=== PATIENT | male | born 1955 | race Caucasian/White ===

== ENCOUNTER → 2018-04-21 | Outpatient (REF) | payer OTHER, MEDICAID ==
[2018-04-21 13:35] LABS: ALBUMIN 3.9 GM/DL (3.2-5.2); ALBUMIN/GLOBULIN RATIO 1.34 (1.00-1.93); ALKALINE PHOSPHATASE 71 U/L (45-117); ALT/SGPT 48 U/L (12-78); ANION GAP 5 MEQ/L (8-16); AST/SGOT 26 U/L (7-37); BILIRUBIN,TOTAL 0.3 MG/DL (0.2-1.0); BLOOD UREA NITROGEN 24 MG/DL (7-18); CALCIUM LEVEL 8.9 MG/DL (8.8-10.2); CARBON DIOXIDE LEVEL 26 MEQ/L (21-32); CHLORIDE LEVEL 113 MEQ/L (98-107); CHOLESTEROL LEVEL 176 MG/DL (<200); CHOLESTEROL RISK RATIO 4.756 (<5); CREATININE FOR GFR 1.04 MG/DL (0.70-1.30); GLOMERULAR FILTRATION RATE > 60.0 (>49); GLUCOSE, FASTING 95 MG/DL (70-100); HDL CHOLESTEROL 37 MG/DL (>40); LDL CHOLESTEROL 128 MG/DL (<100); NON-HDL-C 139 MG/DL; POTASSIUM SERUM 4.9 MEQ/L (3.5-5.1); SODIUM LEVEL 144 MEQ/L (136-145); TOTAL PROTEIN 6.8 GM/DL (6.4-8.2); TRIGLYCERIDES LEVEL 56 MG/DL (<150)
== END ==
LOC: M LAB REF 12:26
DX: Z00.01 Encounter for general adult medical examination with abnormal findings (principal)
CPT/HCPCS: 84443

== ENCOUNTER → 2019-06-01 | Outpatient (REF) | payer OTHER, MEDICAID ==
[2019-06-01 12:35] LABS: APPEARANCE, URINE CLEAR (CLEAR); BACTERIA, URINE AUTO NEGATIVE (NEGATIVE); BILIRUBIN, URINE AUTO NEGATIVE (NEGATIVE); BLOOD, URINE BLOOD NEGATIVE (NEGATIVE); COLOR, URINE YELLOW (YELLOW); GLUCOSE, URINE (UA) AUTO NEGATIVE (NEGATIVE); KETONE, URINE AUTO NEGATIVE (NEGATIVE); LEUKOCYTE ESTERASE, URINE AUTO NEGATIVE (NEGATIVE); NITRITE, URINE AUTO NEGATIVE (NEGATIVE); PROTEIN, URINE AUTO NEGATIVE (NEGATIVE); RBC, URINE AUTO 1 /HPF (0-3); SPECIFIC GRAVITY URINE AUTO 1.019 (1.002-1.035); SQUAMOUS EPITHELIAL CELL UR AU 0 /HPF (0-6); UROBILINOGEN, URINE AUTO 0.2 mg/dL (0.0-2.0); WBC, URINE AUTO 1 /HPF (0-3)
[2019-06-01 12:40] LABS: BASO % 0.8 % (0.0-1.0); EOS # 0.1 10^3/uL (0.0-0.5); EOS % 2.6 % (0.0-3.0); HEMATOCRIT 56.2 % (42.0-52.0); HEMOGLOBIN 18.7 g/dl (13.5-17.5); LYMPH # 1.5 10^3/uL (1.5-5.0); LYMPH % 29.9 % (24.0-44.0); MEAN CORPUSCULAR HEMOGLOBIN 30.4 pg (27.0-33.0); MEAN CORPUSCULAR HGB CONC 33.3 g/dl (32.0-36.5); MEAN CORPUSCULAR VOLUME 91.4 fl (80.0-96.0); MONO # 0.7 10^3/uL (0.0-0.8); NEUTROPHILS # 2.6 10^3/uL (1.5-8.5); NEUTROPHILS % 52.5 % (36.0-66.0); PLATELET COUNT, AUTOMATED 272 10^3/uL (150-450); RED BLOOD COUNT 6.15 10^6/uL (4.30-6.10)
[2019-06-01 12:55] LABS: HEMOGLOBIN A1c 5.7 %
[2019-06-01 13:21] LABS: ALBUMIN 3.7 GM/DL (3.2-5.2); ALT/SGPT 43 U/L (12-78); BILIRUBIN,TOTAL 0.6 MG/DL (0.2-1.0); BLOOD UREA NITROGEN 21 MG/DL (7-18); CARBON DIOXIDE LEVEL 27 MEQ/L (21-32); CHLORIDE LEVEL 107 MEQ/L (98-107); CHOLESTEROL LEVEL 203 MG/DL (<200); GLOMERULAR FILTRATION RATE > 60.0 (>49); GLUCOSE, FASTING 86 MG/DL (70-100); HDL CHOLESTEROL 50 MG/DL (>40); LDL CHOLESTEROL 141 MG/DL (<100); NON-HDL-C 153 MG/DL; POTASSIUM SERUM 4.7 MEQ/L (3.5-5.1); SODIUM LEVEL 140 MEQ/L (136-145); TOTAL PROTEIN 7.3 GM/DL (6.4-8.2); TRIGLYCERIDES LEVEL 61 MG/DL (<150)
[2019-06-01 13:47] LABS: TOTAL 25(OH) VITAMIN D 23.4 NG/ML (30.0-100.0)
== END ==
LOC: M LAB REF 11:48
PROVIDERS: ATTEND Nurse Practitioner Family
DX: Z00.01 Encounter for general adult medical examination with abnormal findings (principal); R39.198 Other difficulties with micturition

== ENCOUNTER → 2019-06-24 | Outpatient (CLI) | payer OTHER ==
[~2019-06-24] MED LIST: E-Z-GAS II EFFERVESCENT PACKET (SODIUM BICARB./CITRIC ACID/SIMETHICONE) As Ordered ONE; E-Z-HD 98% w/w 340GM SUSP BTL As Ordered ONE; E-Z-PAQUE 96% w/w SUSP 176GM BTL As Ordered ONE
--- NOTE | 2019-06-27 09:04 | REP ---
Examination Requested: Esophagram Barium Swallow Reason For Exam/Comment: Dysphasia Esophagram: The procedure was performed [facility] [place], under the direct supervision of Dr. Castillo. The images were reviewed with Dr. Castillo. A single PA chest x-ray is submitted as a station helper film. The superior mediastinal structures are midline. The heart size is within normal limits. The lungs are clear. Liquid barium and gas producing granules were given in the erect position as well as liquid barium in the prone oblique position, in order to perform a double contrast esophagram examination. Oral and pharyngeal stages of the examination demonstrate laryngeal penetration. Esophageal transport is efficient and there is no esophagitis, stricture, or mucosal ring noted. There is there is no hiatal hernia noted. Gastroesophageal reflux was visualized to the level of thoracic inlet. Impression: 1. Gastroesophageal reflux to the level of the thoracic inlet. 0.4 minutes of fluoroscopy time was utilized for this procedure. Some fluoroscopic images are performed with last image hold technology. These images require no additional radiation. Reviewed by KIA Vick 06/24/2019 05:43 P Electronically Signed by Hamilton Castillo MD 06/27/2019 08:55 A
== END ==
LOC: M RAD 09:08
PROVIDERS: ATTEND Physician Assistant Medical
DX: R13.10 Dysphagia, unspecified (principal)

== ENCOUNTER → 2019-07-27 | Outpatient (REF) | payer OTHER ==
[2019-07-27 13:25] LABS: APPEARANCE, URINE CLEAR (CLEAR); BACTERIA, URINE AUTO NEGATIVE (NEGATIVE); BILIRUBIN, URINE AUTO NEGATIVE (NEGATIVE); BLOOD, URINE BLOOD NEGATIVE (NEGATIVE); COLOR, URINE YELLOW (YELLOW); GLUCOSE, URINE (UA) AUTO NEGATIVE (NEGATIVE); KETONE, URINE AUTO NEGATIVE (NEGATIVE); LEUKOCYTE ESTERASE, URINE AUTO NEGATIVE (NEGATIVE); NITRITE, URINE AUTO NEGATIVE (NEGATIVE); PROTEIN, URINE AUTO NEGATIVE (NEGATIVE); RBC, URINE AUTO 1 /HPF (0-3); SPECIFIC GRAVITY URINE AUTO 1.018 (1.002-1.035); SQUAMOUS EPITHELIAL CELL UR AU 0 /HPF (0-6); UROBILINOGEN, URINE AUTO 0.2 mg/dL (0.0-2.0); WBC, URINE AUTO 0 /HPF (0-3)
== END ==
LOC: M SMT 12:53
PROVIDERS: ATTEND Nurse Practitioner Women's Health
DX: R39.15 Urgency of urination (principal)

== ENCOUNTER 2019-09-06 09:20 | Day surgery (SDC) | payer OTHER ==
[~2019-09-06] VITALS: Ht 172.7 cm; Wt 91.4 kg
[~2019-09-06 09:20] MED LIST changes: +BIOT10009 PO; +D-101000 PO; -E-Z-GAS II EFFERVESCENT PACKET (SODIUM BICARB./CITRIC ACID/SIMETHICONE) As Ordered ONE; -E-Z-HD 98% w/w 340GM SUSP BTL As Ordered ONE; -E-Z-PAQUE 96% w/w SUSP 176GM BTL As Ordered ONE; +FOLI400T PO; +LIDOCAINE 2% INJ 100 MG/5 ML SDV (FOR ANES.) As Ordered ONE; +MAGN1CAP PO; +NS 1,000 ML IV SCH; +propofoL 200 MG/20 ML VIAL As Ordered ONE
--- NOTE | 2019-09-06 10:46 | ROOR ---
Patient Name: Richie Cassidy Procedure Date: 09/06/2019 10:29 AM Date of : 1955 Age: 64 Room: [facility] Gender: Male Note Status: Finalized Procedure: Upper GI endoscopy Indications: Dysphagia Providers: Kyrie BRAXTON MD Referring MD: Kyara Dan Requestsal Provider: Medicines: Monitored Anesthesia Care Complications: No immediate complications. Procedure: Pre-Anesthesia Assessment: - The heart rate, respiratory rate, oxygen saturations, blood pressure, adequacy of pulmonary ventilation, and response to care were monitored throughout the procedure. The Endoscope was introduced through the mouth, and advanced to the second part of duodenum. The upper GI endoscopy was accomplished without difficulty. The patient tolerated the procedure well. Findings: The Z-line was variable and was found 39 cm from the incisors. This was biopsied with a cold forceps for histology. No endoscopic abnormality was evident in the esophagus to explain the patient's complaint of dysphagia. This was biopsied with a cold forceps for evaluation of eosinophilic esophagitis. The entire examined stomach was normal. The examined duodenum was normal. Impression: - Normal esophagus with Z-line variable, 39 cm from the incisors. Biopsied. - No endoscopic esophageal abnormality to explain patient's dysphagia. Biopsied. - Normal stomach. - Normal examined duodenum. Recommendation: - Follow an antireflux regimen. - Observe patient's clinical course. - Telephone endoscopist for pathology results in 2 weeks. Kyrie Braxton MD Kyrie BRAXTON MD 09/06/2019 10:45:39 AM Electronically signed by Kyrie BRAXTON MD Number of Addenda: 0 Note Initiated On: 09/06/2019 10:29 AM Estimated Blood Loss: Estimated blood loss: none.
--- NOTE | 2019-09-06 11:01 | ROOR ---
Patient Name: Richie Cassidy Procedure Date: 09/06/2019 10:30 AM Date of : 1955 Age: 64 Room: [facility] Gender: Male Note Status: Finalized Procedure: Colonoscopy Indications: Screening for colorectal malignant neoplasm Providers: Kyrie BRAXTON MD Referring MD: Kyara Dan Requestsal Provider: Medicines: Monitored Anesthesia Care Complications: No immediate complications. Procedure: Pre-Anesthesia Assessment: - The heart rate, respiratory rate, oxygen saturations, blood pressure, adequacy of pulmonary ventilation, and response to care were monitored throughout the procedure. The Colonoscope was introduced through the anus and advanced to the terminal ileum, with identification of the appendiceal orifice and IC valve. The colonoscopy was somewhat difficult due to inadequate bowel prep. Successful completion of the procedure was aided by lavage. The patient tolerated the procedure well. The quality of the bowel preparation was adequate. Findings: The perianal and digital rectal examinations were normal. Internal hemorrhoids were found during retroflexion. The hemorrhoids were medium-sized. The entire examined colon appeared normal on direct and retroflexion views. Impression: - Internal hemorrhoids. - The entire examined colon is normal on direct and retroflexion views. - No specimens collected. Recommendation: - Repeat colonoscopy in 5 years because the bowel preparation was suboptimal. Kyrie Braxton MD Kyrie BRAXTON MD 09/06/2019 11:01:12 AM Electronically signed by Kyrie BRAXTON MD Number of Addenda: 0 Note Initiated On: 09/06/2019 10:30 AM Estimated Blood Loss: Estimated blood loss: none.
[2019-09-06 11:37] VITALS: BP 107/62
== END 2019-09-06 11:40 | disposition home or self-care (01) ==
LOC: M OPP 09:20
PROVIDERS: ATTEND Internal Medicine Gastroenterology
DX: Z12.11 Encounter for screening for malignant neoplasm of colon (principal); K64.8 Other hemorrhoids; K22.8 Other specified diseases of esophagus; R13.10 Dysphagia, unspecified; Z88.2 Allergy status to sulfonamides; Z88.7 Allergy status to serum and vaccine; Z88.8 Allergy status to other drugs, medicaments and biological substances; Z91.018 Allergy to other foods; Z91.013 Allergy to seafood

== ENCOUNTER → 2019-11-29 | Outpatient (REF) | payer MEDICAID ==
[~2019-11-29] MED LIST changes: -LIDOCAINE 2% INJ 100 MG/5 ML SDV (FOR ANES.) As Ordered ONE; -NS 1,000 ML IV SCH; -propofoL 200 MG/20 ML VIAL As Ordered ONE
[2019-11-29 12:57] LABS: CHOLESTEROL RISK RATIO 3.92 (<5)
[2019-11-29 13:19] LABS: TOTAL 25(OH) VITAMIN D 27.6 NG/ML (30.0-100.0)
[2019-11-29 15:15] LABS: HEMOGLOBIN A1c 5.8 %
== END ==
LOC: M LAB REF 11:46
PROVIDERS: ATTEND Nurse Practitioner Family
DX: N39.43 Post-void dribbling (principal); E78.00 Pure hypercholesterolemia, unspecified; R73.03 Prediabetes; R39.198 Other difficulties with micturition

== ENCOUNTER → 2020-04-20 | Outpatient (REF) | payer OTHER ==
[2020-04-20 14:16] LABS: APPEARANCE, URINE CLEAR (CLEAR); BACTERIA, URINE AUTO NEGATIVE (NEGATIVE); BILIRUBIN, URINE AUTO NEGATIVE (NEGATIVE); BLOOD, URINE BLOOD 1+ (NEGATIVE); COLOR, URINE STRAW (YELLOW); GLUCOSE, URINE (UA) AUTO NEGATIVE (NEGATIVE); KETONE, URINE AUTO NEGATIVE (NEGATIVE); LEUKOCYTE ESTERASE, URINE AUTO NEGATIVE (NEGATIVE); NITRITE, URINE AUTO NEGATIVE (NEGATIVE); PROTEIN, URINE AUTO NEGATIVE (NEGATIVE); RBC, URINE AUTO 0 /HPF (0-3); SPECIFIC GRAVITY URINE AUTO 1.015 (1.002-1.035); SQUAMOUS EPITHELIAL CELL UR AU 0 /HPF (0-6); UROBILINOGEN, URINE AUTO 0.2 mg/dL (0.0-2.0); WBC, URINE AUTO 0 /HPF (0-3)
== END ==
LOC: M SMT 12:55
PROVIDERS: ATTEND Nurse Practitioner Women's Health
DX: R35.0 Frequency of micturition (principal)

== ENCOUNTER 2021-07-21 10:19 | Emergency (ER) | payer OTHER ==
[~2021-07-21] VITALS: Ht 172.7 cm; Wt 99.1 kg
[~2021-07-21 10:19] MED LIST changes: -FOLI400T PO; +FOLI400T13 PO
[2021-07-21] MEDS ORDERED: IBUP200C28 PO (10:46)
[2021-07-21] MEDS ORDERED: AMOX500T (10:46)
[2021-07-21 12:22] LABS: BASO % 0.4 % (0.0-1.0); EOS # 0.1 10^3/uL (0.0-0.5); EOS % 1.5 % (0.0-3.0); HEMATOCRIT 52.3 % (42.0-52.0); HEMOGLOBIN 17.8 g/dl (13.5-17.5); LYMPH # 1.5 10^3/uL (1.5-5.0); LYMPH % 21.7 % (24.0-44.0); MEAN CORPUSCULAR HEMOGLOBIN 30.5 pg (27.0-33.0); MEAN CORPUSCULAR VOLUME 89.6 fl (80.0-96.0); MONO # 0.7 10^3/uL (0.0-0.8); MONO % 9.6 % (2.0-8.0); NEUTROPHILS # 4.6 10^3/uL (1.5-8.5); NEUTROPHILS % 66.5 % (36.0-66.0); PLATELET COUNT, AUTOMATED 322 10^3/uL (150-450); RED BLOOD COUNT 5.84 10^6/uL (4.30-6.10); WHITE BLOOD COUNT 6.9 10^3/uL (4.0-10.0)
[2021-07-21 13:04] LABS: BLOOD UREA NITROGEN 27 MG/DL (7-18); CALCIUM LEVEL 9.1 MG/DL (8.8-10.2); CARBON DIOXIDE LEVEL 23 MEQ/L (21-32); CHLORIDE LEVEL 112 MEQ/L (98-107); CREATININE FOR GFR 1.03 MG/DL (0.70-1.30); GLOMERULAR FILTRATION RATE > 60.0 (>49); GLUCOSE, FASTING 98 MG/DL (70-100); POTASSIUM SERUM 4.7 MEQ/L (3.5-5.1); SODIUM LEVEL 141 MEQ/L (136-145)
[2021-07-21] MEDS ORDERED: ACET-897 PO (14:50)
[2021-07-21 15:04] VITALS: BP 140/66
== END 2021-07-21 15:05 | disposition home or self-care (01) ==
LOC: M ED 10:19
DX: M17.11 Unilateral primary osteoarthritis, right knee (principal); M79.661 Pain in right lower leg; M79.651 Pain in right thigh; M77.31 Calcaneal spur, right foot; F43.10 Post-traumatic stress disorder, unspecified; M51.36 Other intervertebral disc degeneration, lumbar region; Z88.1 Allergy status to other antibiotic agents; Z88.2 Allergy status to sulfonamides; Z88.7 Allergy status to serum and vaccine; Z91.018 Allergy to other foods

== ENCOUNTER → 2021-11-21 | Outpatient (CLI) | payer OTHER ==
[~2021-11-21] MED LIST changes: +ACET-897 PO; +AMOX500T; +IBUP200C28 PO
== END ==
LOC: M RAD 11:44
PROVIDERS: ATTEND Pediatrics
DX: M54.10 Radiculopathy, site unspecified (principal); M51.36 Other intervertebral disc degeneration, lumbar region

== ENCOUNTER → 2021-12-25 | Outpatient (CLI) | payer OTHER | LOC: M RAD 14:23 | PROVIDERS: ATTEND Pediatrics | DX: R60.9 Edema, unspecified (principal) ==

== ENCOUNTER → 2022-03-26 | Outpatient (CLI) | payer OTHER | LOC: M PLAIMG 08:25 | PROVIDERS: ATTEND Physician Assistant | DX: M48.061 Spinal stenosis, lumbar region without neurogenic claudication (principal) ==

== ENCOUNTER 2022-06-25 20:26 | Emergency (ER) | payer OTHER ==
[~2022-06-25] VITALS: Ht 172.7 cm; Wt 94.8 kg
[2022-06-26] MEDS ORDERED: CIPROFLOXACIN 0.3% OPHTH SOLN 2.5ML OS ONE (01:10)
[2022-06-26] MEDS ORDERED: AUGMENTIN 875 MG TAB PO ONE (01:10)
[2022-06-26] MEDS ORDERED: AMOX875T2 PO (01:12)
[2022-06-26] MEDS ORDERED: CIPR0.3S6 OS (01:12)
[2022-06-26 01:38] VITALS: BP 115/67
== END 2022-06-26 01:39 | disposition home or self-care (01) ==
LOC: M ED 20:26
DX: J01.00 Acute maxillary sinusitis, unspecified (principal); H10.32 Unspecified acute conjunctivitis, left eye; F43.10 Post-traumatic stress disorder, unspecified; F41.9 Anxiety disorder, unspecified; Z88.2 Allergy status to sulfonamides; Z88.7 Allergy status to serum and vaccine; Z91.02 Food additives allergy status; Z79.899 Other long term (current) drug therapy

== ENCOUNTER → 2022-07-28 | Outpatient (CLI) | payer OTHER ==
[~2022-07-28] MED LIST changes: +AMOX875T2 PO; +CIPR0.3S6 OS
== END ==
LOC: M RAD 10:57
PROVIDERS: ATTEND Pediatrics
DX: N28.1 Cyst of kidney, acquired (principal); N28.89 Other specified disorders of kidney and ureter

== ENCOUNTER 2022-11-23 22:40 | Emergency (ER) | payer MEDICARE, OTHER ==
[~2022-11-23] VITALS: Ht 172.7 cm; Wt 97.7 kg
[~2022-11-23 22:40] MED LIST changes: +CIPR0.3S37 OS; -CIPR0.3S6 OS
[2022-11-24 00:33] LABS: BASO % 0.6 % (0.0-1.0); EOS # 0.2 10^3/uL (0.0-0.5); EOS % 2.4 % (0.0-3.0); HEMATOCRIT 51.1 % (42.0-52.0); HEMOGLOBIN 17.9 g/dl (13.5-17.5); LYMPH # 2.2 10^3/uL (1.5-5.0); LYMPH % 33.5 % (24.0-44.0); MEAN CORPUSCULAR VOLUME 88.6 fl (80.0-96.0); MONO # 0.7 10^3/uL (0.0-0.8); MONO % 10.8 % (2.0-8.0); NEUTROPHILS # 3.5 10^3/uL (1.5-8.5); NEUTROPHILS % 52.6 % (36.0-66.0); PLATELET COUNT, AUTOMATED 249 10^3/uL (150-450); RED BLOOD COUNT 5.77 10^6/uL (4.30-6.10); WHITE BLOOD COUNT 6.7 10^3/uL (4.0-10.0)
[2022-11-24 00:45] LABS: INR 0.95; PROTHROMBIN TIME 12.9 SECONDS (12.5-14.5)
[2022-11-24 00:46] LABS: PARTIAL THROMBOPLASTIN TIME 28.1 SECONDS (24.8-34.2)
[2022-11-24 01:04] LABS: ALBUMIN 3.4 G/DL (3.2-5.2); BILIRUBIN,DIRECT 0.1 MG/DL (<0.4); BILIRUBIN,TOTAL 0.4 MG/DL (0.3-1.2); TOTAL PROTEIN 6.4 G/DL (5.7-8.2)
[2022-11-24] MEDS ORDERED: PROC2.5C TOP (02:00)
[2022-11-24] MEDS ORDERED: COLA100C5 PO (02:00)
[2022-11-24] MEDS ORDERED: BENZ200C70 PO (02:00)
[2022-11-24 02:20] VITALS: BP 146/88
== END 2022-11-24 02:35 | disposition home or self-care (01) ==
LOC: M ED 22:40
DX: R04.2 Hemoptysis (principal); K64.9 Unspecified hemorrhoids; E11.9 Type 2 diabetes mellitus without complications; F41.9 Anxiety disorder, unspecified; F32.A Depression, unspecified; F43.10 Post-traumatic stress disorder, unspecified; E55.9 Vitamin D deficiency, unspecified; Z91.013 Allergy to seafood; Z88.2 Allergy status to sulfonamides; Z88.7 Allergy status to serum and vaccine

== ENCOUNTER → 2022-12-24 | Outpatient (REF) | payer MEDICARE, OTHER ==
[~2022-12-24] MED LIST changes: +BENZ200C70 PO; +COLA100C5 PO; +PROC2.5C TOP
[2022-12-24 13:59] LABS: PROSTATIC SPECIFIC AG MONITOR 1.87 NG/ML (< 4.00)
[2022-12-24 14:04] LABS: THYROID STIMULATING HORMONE 1.239 uIU/ML (0.55-4.78)
[2022-12-24 14:07] LABS: CHOLESTEROL RISK RATIO 3.94 (<5); HDL CHOLESTEROL 36.8 MG/DL (>40); LDL CHOLESTEROL 90.2 MG/DL (<100); NON-HDL-C 108.2 MG/DL
== END ==
LOC: M LAB REF 12:32
PROVIDERS: ATTEND Pediatrics
DX: E78.5 Hyperlipidemia, unspecified (principal); Z12.5 Encounter for screening for malignant neoplasm of prostate

== ENCOUNTER → 2023-03-23 | Outpatient (REF) | payer MEDICARE, OTHER ==
[2023-03-23 14:06] LABS: ALBUMIN 3.5 G/DL (3.2-5.2); ALKALINE PHOSPHATASE 65 U/L (46-116); ALT/SGPT 39 U/L (7.0-40); AST/SGOT 26 U/L (<34); BILIRUBIN,TOTAL 0.5 MG/DL (0.3-1.2); BLOOD UREA NITROGEN 28 MG/DL (9-23); CALCIUM LEVEL 8.7 MG/DL (8.3-10.6); CARBON DIOXIDE LEVEL 27 MMOL/L (20-31); CHLORIDE LEVEL 108 MMOL/L (98-107); CHOLESTEROL LEVEL 162 MG/DL (<200); CHOLESTEROL RISK RATIO 3.36 (<5); CREATININE FOR GFR 0.97 MG/DL (0.70-1.30); GLOMERULAR FILTRATION RATE > 60.0 (>49); GLUCOSE, FASTING 66 MG/DL (74-106); HDL CHOLESTEROL 48.2 MG/DL (>40); LDL CHOLESTEROL 104.2 MG/DL (<100); NON-HDL-C 113.8 MG/DL; SODIUM LEVEL 142 MMOL/L (136-145); TOTAL PROTEIN 6.5 G/DL (5.7-8.2); TRIGLYCERIDES LEVEL 48 MG/DL (<150)
== END ==
LOC: M LAB REF 12:03
PROVIDERS: ATTEND Pediatrics
DX: E78.5 Hyperlipidemia, unspecified (principal)

== ENCOUNTER 2024-09-05 02:44 | Emergency (ER) | payer MEDICARE, OTHER ==
[~2024-09-05] VITALS: Ht 172.7 cm; Wt 95.4 kg
[2024-09-05 05:04] LABS: BASO % 0.9 % (0.0-1.0); EOS % 0.7 % (0.0-3.0); HEMATOCRIT 53.1 % (42.0-52.0); HEMOGLOBIN 18.2 g/dl (13.5-17.5); LYMPH # 1.1 10^3/uL (1.5-5.0); LYMPH % 23.9 % (24.0-44.0); MEAN CORPUSCULAR HEMOGLOBIN 30.8 pg (27.0-33.0); MEAN CORPUSCULAR HGB CONC 34.3 g/dl (32.0-36.5); MEAN CORPUSCULAR VOLUME 89.8 fl (80.0-96.0); MONO % 22.8 % (2.0-8.0); NEUTROPHILS # 2.3 10^3/uL (1.5-8.5); NEUTROPHILS % 51.5 % (36.0-66.0); PLATELET COUNT, AUTOMATED 213 10^3/uL (150-450); RED BLOOD COUNT 5.91 10^6/uL (4.30-6.10); WHITE BLOOD COUNT 4.4 10^3/uL (4.0-10.0)
[2024-09-05 05:29] LABS: CK-MB VALUE MASS 1.5 NG/ML (<3.6); LIPASE 37 U/L (12-53)
[2024-09-05 05:31] LABS: ALBUMIN 3.6 G/DL (3.2-5.2); ALKALINE PHOSPHATASE 80 U/L (40-129); ALT/SGPT 38 U/L (7.0-40); AST/SGOT 27 U/L (<34); BILIRUBIN,DIRECT 0.2 MG/DL (<0.4); BILIRUBIN,TOTAL 0.6 MG/DL (0.3-1.2); BLOOD UREA NITROGEN 17 MG/DL (9-23); CALCIUM LEVEL 8.9 MG/DL (8.3-10.6); CARBON DIOXIDE LEVEL 25 MMOL/L (20-31); CHLORIDE LEVEL 106 MMOL/L (98-107); CREATININE FOR GFR 1.13 MG/DL (0.70-1.30); GLOMERULAR FILTRATION RATE > 60.0 (>49); GLUCOSE, FASTING 92 MG/DL (74-106); POTASSIUM SERUM 4.4 MMOL/L (3.5-5.1); SODIUM LEVEL 139 MMOL/L (136-145); TOTAL PROTEIN 7.1 G/DL (5.7-8.2)
[2024-09-05 05:32] LABS: CPK CREATINE PHOSPHOKINASE 170 U/L (46-171); MB/CK RELATIVE INDEX 0.88 (< OR =4)
[2024-09-05] MEDS ORDERED: ISOVUE-370 76% 100ML VIAL As Ordered ONE (10:58)
[2024-09-05] MEDS: FAMOTIDINE 20 MG TAB PO ONE (11:26)
[2024-09-05] MEDS ORDERED: ONDA-282 PO (12:45)
[2024-09-05] MEDS ORDERED: FAMO20TA PO (12:53)
[2024-09-05 12:56] VITALS: BP 144/88
[2024-09-05] MEDS: ONDANSETRON 4MG 2ML VIAL IV ONE (12:58)
[2024-09-05 12:59] VITALS: TEMP 98.2; O2SAT 95
== END 2024-09-05 13:21 | disposition home or self-care (01) ==
LOC: M ED 02:44 → EDBD 02:44 → M ED 13:21
DX: I88.0 Nonspecific mesenteric lymphadenitis (principal); E11.9 Type 2 diabetes mellitus without complications; Z87.442 Personal history of urinary calculi; Z87.440 Personal history of urinary (tract) infections; K64.9 Unspecified hemorrhoids; Z88.2 Allergy status to sulfonamides; Z88.7 Allergy status to serum and vaccine; Z91.018 Allergy to other foods
CPT/HCPCS: 74177; 80048; 80076; 82550; 82553; 83690; 84484; 85025; 93041; 96374; 99284; J2405; Q9967